=== PATIENT | female | born 1965 | race Caucasian/White ===

== ENCOUNTER 2017-01-14 14:21 | Inpatient (IN) | payer OTHER ==
[2017-01-14] VITALS (7 sets, daily range): BP systolic 117–132; BP diastolic 62–81; PULSE 67–88; RESP 16–18; O2SAT 97–100
[~2017-01-14] VITALS: Ht 172.7 cm; Wt 67.5 kg
--- NOTE | 2017-01-14 15:08 | ED.REPORT ---
HPI-GI Bleed Date of Service Jan 14, 2017 ED Provider: Jason Marshall MD Patient is a 51 year old female on Coumadin with a history of DVT who presents to the ED sent from [facility] complaining of hematochezia onset last night. She describes her bowel movements as "bright red" and explosive. Additional symptoms include "cramping" lower quadrant abdominal pain, generalized weakness, malaise, "scratchy" sensation, and diaphoresis. She denies melena, nausea, vomiting, or cough. She also denies any recent travel, taking antibiotics, new foods, encounters with infectious people, or previous similar symptoms. She has had three bowel movements today. Nursing Notes Stated Complaint: INTESTINAL BLEEDING ON COUMADIN/SENT [facility] Chief Complaint: Female Abdominal Pain Nursing Notes Reviewed: Yes Allergies: Coded Allergies: No Known Allergies (Unverified , 01/14/17) Scheduled Fluvoxamine Maleate ER (Fluvoxamine Maleate ER) 150 Mg Capsule 150 MG PO HS Lamotrigine (Lamotrigine) 150 Mg Tablet 75 MG PO BID Levothyroxine (Levothyroxine) 75 Mcg Tablet 75 MCG PO DAILY Warfarin Sodium (Warfarin Sodium) 5 Mg Tablet 2.5 MG PO Q THURSDAY Warfarin Sodium (Warfarin Sodium) 5 Mg Tablet 5 MG PO DAILY except SUN Scheduled PRN Propranolol HCl (Propranolol HCl) 10 Mg Tablet 10 MG PO TID PRN PRN tremors Valacyclovir HCl (Valtrex) 1,000 Mg Tablet 1,000 MG PO DAILY PRN PRN herpes b/ out General Time Seen by Provider: 15:07 Chief Complaint Chief Complaint: Stool bright red blood Bleeding Severity: Moderate Hx Obtained From: Patient Arrived By: Walk-in Onset Occurred: Yesterday Symptom Duration: Constant Quality: Painful Pertinent Negative: Relieved by nothing Recent Healthcare: No recent doctor visit, No recent hospitalization Similar Sx Previous: No Past Medical History Past Medical History Notes: Seen at [facility] 01/14/17 Past Medical History DVT Factor 5 leiden Only one iliac vein Smoking History Unknown if Ever Smoker Social History Other Social History: Good social support Ambulatory Status Independent Review of Systems "Scratchy" sensation Constitutional: Reports: Malaise GI: Reports: Abdominal pain (cramping in lower quadrants), Diarrhea, Hematochezia, Denies: Melena, Nausea, Vomiting Skin: Reports Diaphoresis Neurologic: Reports: Weakness Complete sys rev & neg: except as marked. Physical Exam Physical Exam Notes: No orthostatic changes of blood pressure or heart rate Initial Vital Signs Vital Signs (First) Date Time Temp Pulse Resp B/P Pulse Ox O2 Delivery O2 Flow Rate FiO2 01/14/17 14:31 36.6 74 18 132/81 100 01/14/17 16:11 Room Air Initial VS: Reviewed Neck: Supple, Non-tender Extremities: Vascular intact, Neuro intact, No swelling, No tenderness Skin: Warm, Dry, No cyanosis Neurologic: Alert, Oriented, Nonfocal Psychiatric: Mood/affect normal, Behavior normal, Normal thought content General/Constitutional: Awake, Alert Respiratory / Chest: Atraumatic, Breath sounds NL, Breath sounds = bilat, No respiratory distress Cardiovascular: Heart rate NL, Regular rhythm, Heart sounds NL, No gallop, No murmurs, No rubs Abdomen: Atraumatic, Soft, BS normoactive Tenderness/Guarding/Rebound: Positive: Tender LLQ... (Mild) Interpretation & Diagnostics Lab Results Interpretation Result Diagram: 01/14/17 1545 01/14/17 1545 Test 01/14/17 14:43 01/14/17 15:45 01/14/17 16:21 Hold Urine Received (Received) White Blood Count 9.2th/mm3 (3.8-10.1) Red Blood Count 4.86mil/mm3 (3.90-5.20) Hemoglobin 14.7g/dL (12.0-15.6) Hematocrit 44.9% (35.0-46.0) Mean Corpuscular Volume 92.4fL (81-100) Mean Corpuscular Hemoglobin 30.2pg (27.0-35.0) Mean Corpuscular Hemoglobin Concent 32.7% (32.0-37.0) Red Cell Distribution Width 13.4% (12.3-15.4) Platelet Count 243bil/L (150-400) Neutrophils (%) (Auto) 78.3% (40-74) Lymphocytes (%) (Auto) 14.1% (14-46) Monocytes (%) (Auto) 6.9% (4-12) Eosinophils (%) (Auto) 0.5% (0-5) Basophils (%) (Auto) 0.1% (0-3) Prothrombin Time 18.7sec (8.1-12.5) Prothromb Time International Ratio 1.73ratio Sodium Level 139mEq/L (134-144) Potassium Level 3.7mEq/L (3.5-5.2) Chloride Level 101mEq/L (97-108) Carbon Dioxide Level 23mmol/L (18-29) Blood Urea Nitrogen 12mg/dL (6-24) Creatinine 0.59mg/dL (0.57-1.00) Estimat Glomerular Filtration Rate 154mL/min (>59) Glucose Level 78mg/dL (60-99) Calcium Level 9.6mg/dL (8.5-10.1) Total Bilirubin 0.4mg/dL (0.0-1.2) Aspartate Amino Transf (AST/SGOT) 25U/L (0-50) Alanine Aminotransferase (ALT/SGPT) 19U/L (0-32) Alkaline Phosphatase 121U/L (25-150) Total Protein 7.4g/dL (6.4-8.4) Albumin 4.9g/dL (3.4-5.0) Urine Color Straw (YELLOW) Urine Appearance Clear (CLEAR,HAZY) Urine pH 7.0 (5.0-8.0) Urine Specific [place] 1.010 (1.003-1.035) Urine Protein Negativemg/dL (NEG,TRACE) Urine Glucose (UA) Negativemg/dL (NEGATIVE) Urine Ketones Negativemg/dL (NEGATIVE) Urine Occult Blood Trace (NEGATIVE) Urine Nitrite Negative (NEGATIVE) Urine Bilirubin Negative (NEGATIVE) Urine Urobilinogen Normalmg/dL (NORMAL) Urine Leukocyte Esterase Negative (NEGATIVE) Urine RBC 0-2/hpf (0-2) Urine WBC 0-5/hpf (0-5) Urine Epithelial Cells Few/hpf (NONE-MOD) Urine Crystals None seen (NONE SEEN) Urine Bacteria Few/hpf (NONE-FEW) Urine Hyaline Casts None/lpf (NONE) Urine Granular Casts None seen (NONE SEEN) Urine Waxy Casts None seen (NONE SEEN) Urine Red Blood Cell Casts None seen (NONE SEEN) Urine White Blood Cell Casts None seen (NONE SEEN) Urine Mucus None seen (None Seen) Urine Trichomonas None seen (NONE SEEN) Urine Yeast None (NONE SEEN) Urinalysis Comment None Urine Culture Reflexed Not indicated ECG Interpretation ECG Interpretation: Sinus rhythm, rate 68 Time: 15:35 Interpreted by: ED physician CT Abd / Pelvis Interpretation IMPRESSION: 1. Circumferential wall thickening involving the distal transverse and left colon compatible with nonspecific colitis. Differential diagnosis includes inflammatory and infectious etiologies as well as less likely neoplastic etiology. 2. 6.1 cm heterogeneously enhancing uterine mass possibly representing uterine fibroid. Recommend gynecology consultation. 3. Venous varices in the subcutaneous fat of the anterior lower pelvis. Recommend bilateral lower extremity Doppler ultrasound to exclude chronic venous thrombosis. 4. No dilated loops of bowel. 5. No free fluid or air. Dictated by: Bibi Crum MD, PhD on 01/14/2017 at 17:41 Approved by: Bibi Crum MD, PhD on 01/14/2017 at 17:47 Study type: Abdominal CT IV contrast Interpretation / Wet Read by: Interpret - Radiologist Re-Eval/Medical Decision Med Decision/Clinical Course 51-year-old female with diarrhea that has turned bloody. She is not having much in the way of stool or blood output at present, she is hemodynamically stable with a normal hematocrit. The patient is anticoagulated though her INR is subtherapeutic at present. I believe given her minimal bleeding he does not need urgent reversal of her anticoagulation though it would be my inclination to hold her warfarin at present. I discussed the case with GI; we have obtained stool studies, at the recommendation of GI we have not initiated empiric antibiotic treatment. She will be admitted to the hospitalist service with GI consultation. Source of Hx: Old records Re-Evaluation/Progress : Time of Eval: 16:57 Re-Evaluation/Progress Note: Pt rechecked. Performed physical exam. Discussed plan for admission. Pt understands and agrees with plan. All questions addressed. Consultation #1: Referral / Consult Name: Sher Blackwell MD Call Returned at: 18:00 Computing Consultant: Agrees with eval, Agrees with plan Note: Discussed pt's case with head of data, Dr. Blackwell. Does not want pt on antibiotics. Consultation #2: Referral / Consult Name: BERNARDO DAVID MD Consulted With: Hospitalist Call Returned at: 18:20 Computing Consultant: Will see patient, Agrees with plan, Accepts admit Note: Discussed pt's case with hospitalist, Dr. David. Counseled Regarding: Diagnosis, Lab results, Need for admission Discharge & Departure Impression: Primary Impression: GI bleed GI bleed type/associated pathology: unspecified gastrointestinal hemorrhage type Qualified Code: K92.2 - Gastrointestinal hemorrhage, unspecified Additional Impressions: Colitis Anticoagulated on Coumadin Disposition: ADMITTED TO HOSPITAL Discharge Condition All VS Reviewed: Yes Condition: Stable Scribe Attestation Portions of this note were transcribed by Mary Velázquez. I, Dr. Walters, personally performed the history, physical exam and medical decision-making; I reviewed and confirmed the accuracy of the information in the transcribed note. Jason Walters MD Jan 14, 2017 15:08 Mary Velázquez Jan 14, 2017 15:23
[2017-01-14 16:04] LABS: BASOPHILS % (AUTO) 0.1 % (0-3); EOSINOPHILS % (AUTO) 0.5 % (0-5); MONOCYTES % (AUTO) 6.9 % (4-12); Mean Corpuscular Hemoglobin 30.2 pg (27.0-35.0); Mean Corpuscular Volume 92.4 fL (81-100); NEUTROPHILS % (AUTO) 78.3 % (40-74); Platelet Count 243 bil/L (150-400)
[2017-01-14 16:18] LABS: INR 1.73 ratio
[2017-01-14 16:32] LABS: APPEARANCE,URINE CLEAR (CLEAR,HAZY); COLOR,URINE STRAW (YELLOW); OCCULT BLOOD,URINE TRACE (NEGATIVE); UROBILINOGEN,URINE NORMAL (NORMAL)
[2017-01-14] MEDS ORDERED: HYDROmorphone 0.5 mg/0.5 mL iSecure Syringe IVPUSH PRN (16:55)
[2017-01-14] MEDS ORDERED: 0.9% Sodium Chloride 1,000 ML IV ONE (16:55)
[2017-01-14] MEDS ORDERED: Ondansetron 2 mg/mL 2 mL Inj ONE (16:58)
--- NOTE | 2017-01-14 17:48 | DRSVH ---
PROCEDURE: CT ABDOMEN AND PELVIS WITH CONTRAST ([id number]) INDICATIONS: LLQ tender/bloody diarrhea TECHNIQUE: After the administration of intravenous contrast, 5 mm thick sections acquired from the diaphragm to the symphysis. 5 mm coronal and sagittal reformats were acquired. For radiation dose reduction, the following was used: automated exposure control, adjustment of mA and/or kV according to patient siz e. COMPARISON: None. FINDINGS: Image quality: Excellent. ABDOMEN: Lung bases: Lung bases are clear. Heart size is normal. Solid organs: Liver and spleen are normal in size and enhancement. Gallbladder is within normal cooper its. Biliary system is non dilated. Pancreas enhances normally. No adrenal nodules. Kidneys demon strate normal size and enhancement, without hydronephrosis. Peritoneum and bowel: Circumferential wall thickening involving the distal transverse colon, the col onic splenic flexure in the left colon compatible with nonspecific colitis noted. No free fluid or a ir. The appendix is not definitely visualized, however, no inflammatory changes are noted adjacent to the cecum. 1.1 cm calcification noted adjacent to the cecum may represent appendicolith. Nodes and vessels: No retroperitoneal or mesenteric adenopathy by size criteria. Aorta and inferior vena cava are normal in size. Miscellaneous: No ventral hernias. PELVIS: Genitourinary: Bladder wall thickness is normal. There is a large, approximately 6.1 cm in diameter heterogeneously enhancing uterine mass which may represent a large uterine fibroid, however other nat plastic processes cannot be excluded. Miscellaneous: No inguinal hernias or adenopathy. Venous varices noted in the subcutaneous fat of th e anterior lower pelvis. Bones: No suspicious bony lesions. No vertebral body compression fractures. IMPRESSION: 1. Circumferential wall thickening involving the distal transverse and left colon compatible with no nspecific colitis. Differential diagnosis includes inflammatory and infectious etiologies as well as less likely neoplastic etiology. 2. 6.1 cm heterogeneously enhancing uterine mass possibly representing uterine fibroid. Recommend g ynecology consultation. 3. Venous varices in the subcutaneous fat of the anterior lower pelvis. Recommend bilateral lower e xtremity Doppler ultrasound to exclude chronic venous thrombosis. 4. No dilated loops of bowel. 5. No free fluid or air. Dictated by: Bibi Crum MD, PhD on 01/14/2017 at 17:41 Approved by: Bibi Crum MD, PhD on 01/14/2017 at 17:47
[2017-01-14] MEDS ORDERED: VALA1000 PO (18:50)
[2017-01-14] MEDS ORDERED: LAMO150T2 PO (18:50)
[2017-01-14] MEDS ORDERED: WARF5TAB7 PO ×2 (18:50)
[2017-01-14] MEDS ORDERED: FLUV150C2 PO (18:50)
[2017-01-14] MEDS ORDERED: PROP10TA8 PO (18:50)
[2017-01-14] MEDS ORDERED: Ondansetron 2 mg/mL 2 mL Inj IVPUSH PRN ×2 (18:50→21:55)
[2017-01-14] MEDS ORDERED: LEVO75TA4 PO (18:50)
[2017-01-14] MEDS: 0.9% Sodium Chloride 1,000 ML IV SCH (19:42)
--- NOTE | 2017-01-14 21:22 | PCM.HPMED ---
Subjective Date of Service Jan 14, 2017 Primary Provider: Admitting Physician: Gary French MD Primary Care Physician: Nopbrody Attending Physician: Gary French MD Admit Status: From the Emergency Department Chief Complaint: Bloody diarrhea History of Present Illness: Ms. Anthony is a 51-year-old female with a past medical history significant for factor V Leiden with multiple DVTs on warfarin was sent from [facility] for ongoing episodes of bloody diarrhea which started last night. She reports extreme lower abdominal cramping with resultant bright red explosive diarrhea that continues to occur. The cramping pain does not radiate, and only is slightly better after defecation. She also reports weakness and diaphoresis, but denies any nausea, vomiting, chest pain, recent travel, antibiotic use, dietary changes. She also reports a one to 2 months history of bilateral lower leg cramping which makes it difficult to ambulate for prolonged period time. She says she gets a racing heart sensation but no dizziness, lightheadedness or overt leg pain. Review of Systems: Comprehensive review of systems was obtained and negative except as in the above history of present illness Allergies Coded Allergies: No Known Allergies (Unverified , 01/14/17) Home Medications Scheduled Fluvoxamine Maleate ER (Fluvoxamine Maleate ER) 150 Mg Capsule 150 MG PO HS Lamotrigine (Lamotrigine) 150 Mg Tablet 75 MG PO BID Levothyroxine (Levothyroxine) 75 Mcg Tablet 75 MCG PO DAILY Warfarin Sodium (Warfarin Sodium) 5 Mg Tablet 2.5 MG PO Q THURSDAY Warfarin Sodium (Warfarin Sodium) 5 Mg Tablet 5 MG PO DAILY except SUN Scheduled PRN Propranolol HCl (Propranolol HCl) 10 Mg Tablet 10 MG PO TID PRN PRN tremors Valacyclovir HCl (Valtrex) 1,000 Mg Tablet 1,000 MG PO DAILY PRN PRN herpes b/ out PMH Factor V Leiden Multiple DVT Patient reports only one iliac vein present Surgical History Denies Family History Father had recurrent kidney stones and kidney disease. No history of GI issues. Social History Hx Alcohol Use: Yes (daily bottle of wine) Hx Substance Use: No Hx Tobacco Use: Yes Smoking Status: Former Smoker (3 years as a teenager), Unknown if Ever Smoker Living Arrangement: with Family Exam Vital Signs Vital Sign - Last Date Time Temp Pulse Resp B/P Pulse Ox O2 Delivery O2 Flow Rate FiO2 8/23/17 19:46 36.8 67 18 125/79 100 Room Air Exam Gen.: Age-appropriate female in no acute distress HEENT: NCAT, PERRLA, EOMI. Membranes pink and moist. No exudate or cobblestoning. Neck: Supple, no JVD or thyromegaly CV: Regular rate and rhythm, no murmurs, rubs, gallops Pulmonary: Clear to auscultation bilaterally no wheezes, rales, rhonchi Abd: Soft, nondistended. Tenderness in the lower quadrants L>R. No guarding or rebound. Bowel sounds present. Extremities: No clubbing, cyanosis, or edema. Weak distal pulses bilaterally. Neuro: Alert and oriented 3, CN II through XII intact. Muscle strength 5 out of 5 globally without focal deficit. Psych: Normal mood and affect Lab and Diagnostics Result Diagram: 01/14/17 1545 01/14/17 1545 Microbiology Stool PCR panel, bach negative X-Rays, CTs and MRIs Abd CT 01/14/17 IMPRESSION: 1. Circumferential wall thickening involving the distal transverse and left colon compatible with nonspecific colitis. Differential diagnosis includes inflammatory and infectious etiologies as well as less likely neoplastic etiology. 2. 6.1 cm heterogeneously enhancing uterine mass possibly representing uterine fibroid. Recommend gynecology consultation. 3. Venous varices in the subcutaneous fat of the anterior lower pelvis. Recommend bilateral lower extremity Doppler ultrasound to exclude chronic venous thrombosis. 4. No dilated loops of bowel. 5. No free fluid or air. Dictated by: Bibi Crum MD, PhD on 01/14/2017 at 17:41 Approved by: Bibi Crum MD, PhD on 01/14/2017 at 17:47 12-lead ECG NSR, rate 68 Assessment & Plan Ms. Anthony is a 51-year-old female with a past medical history significant for factor V Leiden with multiple DVTs on warfarin was sent from [facility] for ongoing episodes of bloody diarrhea which started last night and are ongoing. Lower GI bleed, present on admission. Acute. Ongoing. - Unlikely infectious as PCR panel is negative, no infectious symptoms, normal white blood cell count - No history of prior GI bleeds, hemorrhoids, diverticulosis - CT significant for distal transverse and left colon wall thickening compatible with colitis - Dr. Blackwell of Gastroenterology consulted from the ED, recommends: NPO at midnight, bowel prep only No antibiotics at this time - Typed and crossed in ED - Monitor H/H Factor V Leiden with prior DVT on warfarin, present on admission. Chronic. - Patient usually on heparin 5 mg daily with 2.5 mg on Thursday - INR 1.73 - Holding warfarin for now due to GI bleed - CT revealed venous varices and anterior lower pelvis; recommend bilateral lower extremity ultrasound - Ultrasound ordered - Patient will need to be re-anticoagulated prior to discharge History of tremors, present on admission. Chronic. - Patient reports workup was done but negative - Continue propranolol 10 mg 3 times daily as needed Depression, present on admission. Chronic. - Continue fluvoxamine 150 mg at night - Continue lamotrigine 75 mg twice daily Hypothyroidism, present on admission. Chronic. - Continue levothyroxine 75 mcg daily Alcohol use disorder, present on admission. Chronic. - Pt denies any withdrawal symptoms ever but has at least 1 bottle of wine daily - Monitor for withdrawal symptoms Acetaminophen as needed for mild pain, fever, headache. Bowel regimen as needed. Zofran for nausea. Subcutaneous heparin held for GI bleed. SCDs on and in place. Patient status: Patient was admitted to the inpatient service with length of stay likely >2 nights due to severity of presenting symptoms, complex medical workup, and ongoing treatment plan. VTE Prophylaxis Indicated: Contraindicated (GI bleed) VTE Mechanical Devices: Intermittant Pneumatic CD Resuscitation Status: CPR: Attempt Resuscitation Attending Statement The patient was seen and examined together with Dr. Tucker on 01/14 and I agree with the history, exam and plan as outlined in the note above. Raffaele Tucker DO Jan 14, 2017 21:22 Gary French MD Jan 15, 2017 00:54
[2017-01-14] MEDS ORDERED: PEG/Electrolytes 4,000 mL Solution PO ONE (21:50)
[2017-01-14] MEDS ORDERED: Alum-Mag Hydrox-Simeth 30 mL Suspension PO PRN (21:55)
[2017-01-14] MEDS ORDERED: Polyethylene Glycol (PEG) 17 Gm Powder PO PRN (21:55)
[2017-01-14] MEDS ORDERED: FLUVOXAMINE MALEATE 150 MG PO SCH ×2 (21:57→22:20)
[2017-01-14] MEDS ORDERED: lamoTRIgine 25 mg Tablet PO SCH (22:00)
[2017-01-14] MEDS: lamoTRIgine 25 mg Tablet PO SCH (23:09)
[2017-01-14] MEDS: FLUVOXAMINE MALEATE 150 MG PO SCH (23:11)
[2017-01-15] VITALS (9 sets, daily range): BP systolic 111–122; BP diastolic 58–79; PULSE 61–83; RESP 16–18; O2SAT 95–99
[2017-01-15] MEDS: HYDROmorphone 0.5 mg/0.5 mL iSecure Syringe IVPUSH PRN ×3 (01:55→11:33)
[2017-01-15] MEDS: 0.9% Sodium Chloride 1,000 ML IV SCH ×4 (03:47→17:27)
--- NOTE | 2017-01-15 03:49 | NUR ---
Admission Pt arrived to [facility] rm 1012 at 1930 from the ED. Pt is a/o x4, making needs known. Able to transfer from [facility] to bed with SBA. States her pain is much improved, 2/10 after receiving dilaudid. Pt is full code, diet to be NPO after midnight with bowel prep started. IV patent and IV fluids started. Oriented to room, call light and bathroom. Pt using bedside commode during bowel prep. Pt is scheduled for colonoscopy due to lower GI bleed. Care continues
[2017-01-15 06:02] LABS: BASOPHILS % (AUTO) 0.2 % (0-3); EOSINOPHILS % (AUTO) 0.8 % (0-5); MONOCYTES % (AUTO) 7.3 % (4-12); Mean Corpuscular Hemoglobin 31.2 pg (27.0-35.0); Mean Corpuscular Volume 94.5 fL (81-100); NEUTROPHILS % (AUTO) 79.2 % (40-74); Platelet Count 200 bil/L (150-400)
--- NOTE | 2017-01-15 08:30 | NUR ---
Go lyte prep Pt finished go lyte prep @ 0700. Bms are clear with slight pink tinge. Colonoscopy scheduled for tomorrow at this time however call was made to Dr. Blackwell who did not realize she had finished her prep already. Colonoscopy rescheduled for today at ~1600. Care conts
--- NOTE | 2017-01-15 08:35 | PCM.PNMED ---
Subjective Date of Service Jan 15, 2017 Subjective Patient seen and examined. Says the bleeding has slowed down. Mentions that she has had DVTs in the past and is worried that it may be progressing. Says pain is better now. Vitals stable. Exam Vital Signs Vital Sign - Last Date Time Temp Pulse Resp B/P Pulse Ox O2 Delivery O2 Flow Rate FiO2 01/15/17 06:32 68 01/15/17 05:00 36.8 117/75 98 Room Air 01/15/17 00:06 18 Intake and Output 01/14/17 01/14/17 01/15/17 Cumulative From/Thru 15:00 23:00 07:00 01/14/17 14:31 - 01/15/17 06:48 Intake Total 5123 ml 5123 ml Balance 5123 ml 5123 ml Intake Oral 4120 ml 4120 ml IV Total 1003 ml 1003 ml # Voids 1 10 11 # Bowel Movements 10 10 Exam Gen.: Age-appropriate female in no acute distress CV: Regular rate and rhythm, no murmurs, rubs, gallops Pulmonary: Clear to auscultation bilaterally no wheezes, rales, rhonchi Abd: Soft, nondistended. Tenderness in the lower quadrants L>R. No guarding or rebound. Bowel sounds present. Extremities: No clubbing, cyanosis, or edema. Weak distal pulses bilaterally. Neuro: Alert and oriented 3, CN II through XII intact. Muscle strength 5 out of 5 globally without focal deficit. Psych: Normal mood and affect Lab and Diagnostics Result Diagram: 01/15/17 0512 01/15/17 0512 Microbiology Stool PCR panel, bach negative X-Rays, CTs and MRIs Abd CT 01/14/17 IMPRESSION: 1. Circumferential wall thickening involving the distal transverse and left colon compatible with nonspecific colitis. Differential diagnosis includes inflammatory and infectious etiologies as well as less likely neoplastic etiology. 2. 6.1 cm heterogeneously enhancing uterine mass possibly representing uterine fibroid. Recommend gynecology consultation. 3. Venous varices in the subcutaneous fat of the anterior lower pelvis. Recommend bilateral lower extremity Doppler ultrasound to exclude chronic venous thrombosis. 4. No dilated loops of bowel. 5. No free fluid or air. Dictated by: Bibi Crum MD, PhD on 01/14/2017 at 17:41 Approved by: Bibi Crum MD, PhD on 01/14/2017 at 17:47 12-lead ECG NSR, rate 68 Assessment & Plan Ms. Anthony is a 51-year-old female with a past medical history significant for factor V Leiden with multiple DVTs on warfarin was sent from [facility] for ongoing episodes of bloody diarrhea which started last night and are ongoing. Lower GI bleed, present on admission. Acute. Ongoing. - Hgb stable, will keep monitoring - CT significant for distal transverse and left colon wall thickening compatible with colitis - Dr. Blackwell of Gastroenterology consulted from the ED, recommends: NPO at midnight, bowel prep only No antibiotics at this time Factor V Leiden with prior DVT on warfarin, present on admission. Chronic. - Patient usually on heparin 5 mg daily with 2.5 mg on Thursday - INR 1.73 on admissoion - Holding warfarin for now due to GI bleed - CT revealed venous varices and anterior lower pelvis; recommend bilateral lower extremity ultrasound - Ultrasound ordered - patient moved to the area, does not have cryogenics engineer, will get Hem consult Uterine Fibroid - as noted in CT - patient has seen technician telecommunication systems in the past, work up done, was told that it is not growing and is stable - follow up outpatient History of tremors, present on admission. Chronic. - Patient reports workup was done but negative - Continue propranolol 10 mg 3 times daily as needed Depression, present on admission. Chronic. - Continue fluvoxamine 150 mg at night - Continue lamotrigine 75 mg twice daily Hypothyroidism, present on admission. Chronic. - Continue levothyroxine 75 mcg daily Alcohol use disorder, present on admission. Chronic. - Pt denies any withdrawal symptoms ever but has at least 1 bottle of wine daily - Monitor for withdrawal symptoms Acetaminophen as needed for mild pain, fever, headache. Bowel regimen as needed. Zofran for nausea. Subcutaneous heparin held for GI bleed. SCDs on and in place. Patient status: Patient was admitted to the inpatient service with length of stay likely >2 nights due to severity of presenting symptoms, complex medical workup, and ongoing treatment plan. VTE Mechanical Devices: Intermittant Pneumatic CD Resuscitation Status: CPR: Attempt Resuscitation Time spent 35 mins Karlo Newton MD Jan 15, 2017 08:35
[2017-01-15] MEDS: lamoTRIgine 25 mg Tablet PO SCH ×2 (09:51→21:43)
--- NOTE | 2017-01-15 11:27 | DRSVH ---
PROCEDURE: US VENOUS LEG DUPLEX BILATERAL INDICATIONS: factor 5 leiden, previous DVT TECHNIQUE: Real-time imaging, as well as color and pulse Doppler interrogation, were performed of the deep veins of both legs from the inguinal ligament to the popliteal fossa. COMPARISON: None. FINDINGS: The deep veins are normally compressible, and free of intraluminal thrombus. Color and pu lse Doppler demonstrate normal phasic intravascular flow. There is normal augmentation response to d istal compression maneuver. IMPRESSION: No deep venous thrombosis identified within the left lower extremity. Dictated by: Cas Zarate [facility] Interpreted: Bibi Crum MD on 01/15/2017 at 9:45 Approved by: Bibi Crum MD, PhD on 01/15/2017 at 11:25
--- NOTE | 2017-01-15 11:50 | PCM.CHPMED ---
Subjective Date of Service: Jan 15, 2017 Provider requesting consult: Jason Walters MD Primary Physician: Admitting Physician: Gary French MD Primary Care Physician: Akil Attending Physician: Karlo Newton MD Admit Status: From the Emergency Department Chief Complaint: Chief Complaint: Bloody diarrhea History of Present Illness: GASTROENTEROLOGY CONSULT: Attending Physician: Resident Physician: Vesna Kunz DO Ms. Anthony is a 51-year-old with a history of hypothyroidism and factor V Leiden with multiple DVTs, chronically anticoagulated on warfarin who was transferred to [facility] from [facility] for hematochezia that started two days ago. Patient reports a history of chronic abdominal pain and cramping that is intermittent. She states that episodes occur a couple of times per year and typically last for several days and then resolve without treatment. She notes that this has been an issue for nearly twenty years. However, she states that she has never had blood in her stool before. She reports having an EGD done in the that showed gastritis and her last colonoscopy approximately 5 years ago she thinks was normal. She describes the abdominal pain as cramping, it does not radiate and it is mildly relieved with defecation. Associated symptoms include diaphoresis, generalized weakness, and a rapid heart rate. She denies nausea, vomiting, dietary or medication changes, recent travel or antibiotics. She states that she does not take NSAIDs, is a nonsmoker and drinks only 1 cup of coffee per day. When asked about alcohol intake she states that she probably drinks too much. She states that she shares 2 bottles of wine with her 3 -4 times per week. In the ED she was afebrile and normotensive with a BP of 132/81 and a heart rate in the 70s. She was maintaining oxygen saturations of 99-100% on room air. Labs including a CBC, CMP and UA were unremarkable. A CT abdomen was significant for circumferential wall thickening involving the distal transverse and left colon compatible with nonspecific colitis. Stool PCR is negative. Review of Systems: A comprehensive review of systems was conducted with the patient and found to be negative except as above in the History of Present Illness. PMH Past Medical History Factor V Leiden Multiple DVT Patient reports only one iliac vein present Hypothyroidism . Surgical History Denies . Home Medications Fluvoxamine Maleate ER 150 MG PO HS Lamotrigine 75 MG PO BID Levothyroxine 75 MCG PO DAILY Warfarin Sodium 2.5 MG PO Q THURSDAY Warfarin Sodium 5 MG PO DAILY except SUN Scheduled PRN Propranolol HCl 10 MG PO TID PRN tremors Valacyclovir HCl 1,000 MG PO DAILY PRN herpes b/out Allergies: Coded Allergies: No Known Allergies (Unverified , 01/14/17) Family History Family History Father had recurrent kidney stones and kidney disease. No history of GI issues. Social History Hx Alcohol Use: Yes (daily bottle of wine)Hx Substance Use: NoHx Tobacco Use: Yes Smoking Status: Former Smoker (3 years as a teenager) Unknown if Ever Smoker Living Arrangement: with Family Exam Vital Signs Vital Sign - Last Date Time Temp Pulse Resp B/P Pulse Ox O2 Delivery O2 Flow Rate FiO2 01/15/17 06:32 68 01/15/17 05:00 36.8 117/75 98 Room Air 01/15/17 00:06 18 Intake and Output 01/14/17 01/14/17 01/15/17 Cumulative From/Thru 15:00 23:00 07:00 01/14/17 14:31 - 01/15/17 06:48 Intake Total 5123 ml 5123 ml Balance 5123 ml 5123 ml Intake Oral 4120 ml 4120 ml IV Total 1003 ml 1003 ml # Voids 1 10 11 # Bowel Movements 10 10 General: Well appearing, middle-aged female in no acute distress. HEENT: Normocephalic, atraumatic. PERRLA, EOMI. Anicteric sclerae. Mucous membranes moist/pink Neck: Neck supple with full range of motion. No JVD, lymphadenopathy or thyromegaly. Lungs: Clear to auscultation bilaterally with no crackles, wheezes, or rhonchi. Cardiovascular: Regular rate/rhythm. No murmurs/rubs/gallops Abdomen: Soft, non-distended, mildly tender to palpation diffusely (more so in LLQ), no masses. Hypoactive bowel tones Extremities: No edema. Distal pulses diminished bilaterally. Skin: Warm, dry without obvious rashes or ulcerations. Neurological: AOx3, no focal neurologic deficit. Normal speech. Lab and Diagnostics Result Diagram: 01/15/1751101/15/17 0512 X-Rays, CTs and MRIs 01/14/17 - CT ABDOMEN AND PELVIS WITH CONTRAST IMPRESSION: 1. Circumferential wall thickening involving the distal transverse and left colon compatible with nonspecific colitis. Differential diagnosis includes inflammatory and infectious etiologies as well as less likely neoplastic etiology. 2. 6.1 cm heterogeneously enhancing uterine mass possibly representing uterine fibroid. Recommend gynecology consultation. 3. Venous varices in the subcutaneous fat of the anterior lower pelvis. Recommend bilateral lower extremity Doppler ultrasound to exclude chronic venous thrombosis. 4. No dilated loops of bowel. 5. No free fluid or air. Approved by: Bibi Crum MD, PhD on 01/14/2017 at 17:47 Assessment & Plan Assessment Ms. Anthony is a 51-year-old with a history of hypothyroidism and factor V Leiden with multiple DVTs, chronically anticoagulated on warfarin who presented to the ED with a one day history of bloody diarrhea. GI consulted for further evaluation of abdominal pain and hematochezia. Acute lower GI bleed with CT findings consistent with colitis. -Differential includes: segmental colitis associated with diverticulosis, diverticulitis, IBD, neoplasms, and infectious colitis. Unlikely infectious as PCR panel is negative, no infectious symptoms, normal white blood cell count. -Patient presented with bright red blood per rectum for the the past 24-48hrs. Hemodynamically stable at presentation with Hb of 14.7. -CT abdomen significant for wall thickening of distal transverse and left colon compatible with colitis. -No history of prior GI bleeds, hemorrhoids, diverticulosis -Completed bowel prep overnight RECOMMENDATIONS: -Colonoscopy planned for today -Monitor H/H Additional problems managed by primary medicine team: -Factor V Leiden with prior DVT on warfarin -Calf pain with venous varices noted on CT. -History of essential tremor -Depression -Hypothyroidism -Alcohol use disorder . Problems: Pain Evaluation: Adequate Pain Control VTE Prophylaxis Indicated: Contraindicated (GI bleed) VTE Mechanical Devices: Intermittant Pneumatic CD Resuscitation Status: CPR: Attempt Resuscitation Vesna Kunz DO Jan 15, 2017 07:55
[2017-01-15] MEDS ORDERED: fentaNYL-PF 50 mCg/mL 2 mL Inj ONE (12:44)
[2017-01-15] MEDS ORDERED: Propofol 10,000 mCg/mL 20 mL Inj ONE (12:44)
[2017-01-15] MEDS ORDERED: EPHEDrine/NS 5 mg/mL 5 mL Syringe ONE (12:44)
--- NOTE | 2017-01-15 15:22 | PCM.HPANE ---
Patient Data Surgeon Admitting Provider:Gary French MD Attending Provider:Karlo Newton MD Primary Care Physician:Akil Other Provider: Reason for Visit Lower Gi Bleed, Anticoagulated LOWER GI BLEED, ANTICOAGULATED Ht/WT & BMI Height (Feet): 5 Height (Inches): 8.00 Weight (Kilograms): 67.500 Body Mass Index 22.55 Allergies Coded Allergies: No Known Allergies (Unverified , 01/14/17) Past Anesthesia History Anesthesia History: Denies:: Abnormal Airway Diabetes History Hx Diabetes?: No MRSA MRSA: No Medications Reported Medications Lamotrigine 150 Mg [id number] Mg PO BID 01/14/17 Fluvoxamine Maleate ER 150 Mg [id number] Mg PO HS 01/14/17 Propranolol HCl 10 Mg [id number] Mg PO TID PRN tremors 01/14/17 Valacyclovir HCl (Valtrex)1,000 Mg Tablet1,000 Mg PO DAILY PRN herpes b/out 01/14/17 Warfarin Sodium 5 Mg Tablet5 Mg PO DAILY except SUN 01/14/17 Warfarin Sodium 5 Mg Tablet2.5 Mg PO Q Thursday01/14/17 Levothyroxine 75 Mcg [id number] Mcg PO DAILY 01/14/17 History History of ENT Problems?: No HEENT History: Denies:: Abnormal Airway Denture Type: None Teeth Condition: Within Normal Limits Hx of Heart Problems?: Yes Cardiovascular History: Denies:: Abdominal Aortic Aneurism Hx of Respiratory Problem?: No Respiratory History: Denies:: Emphysema Hx Neurologic Problems?: Yes Other Neurological Pertinent: essensial tremors Hx of GI Problems?: Yes Hx of Problems?: No Female Hx: Denies:: Currently Endometriosis Pelvic Inflammatory Problems with Breasts? Hx Musculoskeletal Problems?: No Hx of Psycho/Social Problems?: Yes Psycho Social History: Positive for:: Hx Depression Hx Surgeries?: No Hx Any Other Health Problems?: Yes Other History: Positive for:: Thyroid Disease History Blood Transfusions: Positive for:: Accept Blood Products? Denies:: Blood Transfusions Hx Diabetes: No Hx Alcohol Use: Yes (daily bottle of wine)Hx Substance Use: No Smoking Status: Former Smoker (3 years as a teenager) Unknown if Ever Smoker Stop/Bang Treated for Sleep Apnea?: No Do You Have a CPAP Machine?: No S-Snoring: Do You Snore Loudly: No T-Tired: feel tired, fatigued: No O-Obsered: Observed not breath: No P-Blood Pressure: treated: No B- Body Mass Index > 35 kg/m2: No A- Age over 50: Yes N- Neck Large Circumference: No G- Gender Male: No AMADOR Total Score: 0 AMADOR Risk Assessment: Low Risk, <3 Yes Risk Assessment Category Category 1A: Patient has history of documented sleep apnea, and HAS NOT received any narcotic, sedative or anesthesia administration during this stay. Category 1B: Patient has history of documented sleep apnea, and HAS received any narcotic , sedative or anesthesia administration during this stay Category 2: Patient has SUSPECTED Obstructive Sleep Apnea, and HAS received any narcotic , sedative or anesthesia administration during this stay. Category 3: Patient has SUSPECTED Obstructive Sleep Apnea and HAS NOT received narcotic, sedative or anesthesia administration during this stay. Category 4: Outpatient in Procedural Areas with known sleep apnea or who screen positive for High Risk via the STOP/BANG questionnaire. Exam Exam Vital Signs Vital Signs Date Time Temp Pulse Resp B/P Pulse Ox O2 Delivery O2 Flow Rate FiO2 01/15/17 15:00 36.6 63 16 111/70 99 Room Air 01/15/17 09:56 36.6 63 16 112/69 97 Room Air 01/15/17 08:40 66 General Appearance: Alert, Oriented X3, Cooperative, No Acute Distress HEENT/AIRWAY: MP 2 Lungs: Clear to Auscultation, Normal Air Movement Heart: Exam Unremarkable, Regular Rate/Rhythm, No Murmurs/Rubs/Gallops Meds/Labs/Diagnostics Admission Meds Current Medications Sodium Chloride (Normal Saline) 1,000 ml @ 0 mls/hr Q0M ONCE IV Last administered on 01/14/17 17:04; Start 01/14/17 at 16:55; Stop 01/14/17 at 16:56 ; Status DC Ondansetron HCl 4 mg 4 mg STK-MED ONCE .ROUTE Last administered on 01/14/17 17 :04; Start 01/14/17 at 16:58; Stop 01/14/17 at 16:59; Status DC Sodium Chloride (Normal Saline) 1,000 ml @ 100 mls/hr Q10H IV Last administered on 01/15/17 05:21; Start 01/14/17 at 18:48 Levothyroxine Sodium (Synthroid) 75 mcg DAILYAC PO Last administered on 09:51; Start 01/15/17 at 07:30 Polyethylene Glycol/ Electrolytes (Colyte) 4,000 ml ONCE ONCE PO Last administered on 01/14/17 23:10; Start 01/14/17 at 21:50; Stop 01/14/17 at 22:02 ; Status DC Lamotrigine (LaMICtal) 75 mg BID PO Last administered on 01/15/17 09:51; Start 01/14/17 at 22:20 Patient Own Medication (Patient's Own -> Oral Medication) 1 ea HS PO Last administered on 01/14/17 23:11; Start 01/14/17 at 21:00 Labs Test 01/14/17 14:43 01/14/17 15:45 01/14/17 16:21 01/15/17 05:12 Hold Urine Received (Received) Prothrombin Time 18.7sec (8.1-12.5) Prothromb Time International Ratio 1.73ratio Urine Color Straw (YELLOW) Urine Appearance Clear (CLEAR,HAZY) Urine pH 7.0 (5.0-8.0) Urine Specific Twisp 1.010 (1.003-1.035) Urine Protein Negativemg/dL (NEG,TRACE) Urine Glucose (UA) Negativemg/dL (NEGATIVE) Urine Ketones Negativemg/dL (NEGATIVE) Urine Occult Blood Trace (NEGATIVE) Urine Nitrite Negative (NEGATIVE) Urine Bilirubin Negative (NEGATIVE) Urine Urobilinogen Normalmg/dL (NORMAL) Urine Leukocyte Esterase Negative (NEGATIVE) Urine RBC 0-2/hpf (0-2) Urine WBC 0-5/hpf (0-5) Urine Epithelial Cells Few/hpf (NONE-MOD) Urine Crystals None seen (NONE SEEN) Urine Bacteria Few/hpf (NONE-FEW) Urine Hyaline Casts None/lpf (NONE) Urine Granular Casts None seen (NONE SEEN) Urine Waxy Casts None seen (NONE SEEN) Urine Red Blood Cell Casts None seen (NONE SEEN) Urine White Blood Cell Casts None seen (NONE SEEN) Urine Mucus None seen (None Seen) Urine Trichomonas None seen (NONE SEEN) Urine Yeast None (NONE SEEN) Urinalysis Comment None Urine Culture Reflexed Not indicated White Blood Count 10.6th/mm3 (3.8-10.1) Red Blood Count 4.75mil/mm3 (3.90-5.20) Hemoglobin 14.8g/dL (12.0-15.6) Hematocrit 44.9% (35.0-46.0) Mean Corpuscular Volume 94.5fL (81-100) Mean Corpuscular Hemoglobin 31.2pg (27.0-35.0) Mean Corpuscular Hemoglobin Concent 33.0% (32.0-37.0) Red Cell Distribution Width 13.7% (12.3-15.4) Platelet Count 200bil/L (150-400) Neutrophils (%) (Auto) 79.2% (40-74) Lymphocytes (%) (Auto) 12.3% (14-46) Monocytes (%) (Auto) 7.3% (4-12) Eosinophils (%) (Auto) 0.8% (0-5) Basophils (%) (Auto) 0.2% (0-3) Sodium Level 143mEq/L (134-144) Potassium Level 4.2mEq/L (3.5-5.2) Chloride Level 107mEq/L (97-108) Carbon Dioxide Level 18mmol/L (18-29) Blood Urea Nitrogen 6mg/dL (6-24) Creatinine 0.59mg/dL (0.57-1.00) Estimat Glomerular Filtration Rate 154mL/min (>59) Glucose Level 113mg/dL (60-99) Calcium Level 8.8mg/dL (8.5-10.1) Total Bilirubin 0.4mg/dL (0.0-1.2) Aspartate Amino Transf (AST/SGOT) 23U/L (0-50) Alanine Aminotransferase (ALT/SGPT) 15U/L (0-32) Alkaline Phosphatase 95U/L (25-150) Total Protein 6.5g/dL (6.4-8.4) Albumin 4.6g/dL (3.4-5.0) Plan Impression Patient chart reviewed, patient interviewed and anesthestic plan with risks, benefits, and alternatives discussed, and informed consent obtained. NPO per Anesth. Guidelines: Yes ASA Physical Status: ASA2 Mod Systemic Disease Anesthetic Plan: MAC Bene/Risks/Altern/Consents: Yes HP Complete Prior to Induction: Yes Sam Dillard MD Jan 15, 2017 15:22
--- NOTE | 2017-01-15 15:52 | NUR ---
Social Work: Initial Assessment/Multidisciplinary Rounds D: EMR reviewed. Please see Initial Assessment linked to this note for more information. Pt is a 51 year old female admitted [place] with no readmit risk score for lower GI bleed, anticoagulated per H&P. Pt's insurance is ev-social. PCP is [facility] on [facility] (pt's PCP retired). Pt discussed in multidisciplinary rounds, GI consulted. Pt will likely require PCP and/or GI follow up. MD requested CD consult, no CD orders received at time of rounds. SW met with pt and at bedside to conduct initial assessment. Pt was alert and oriented x3. SW explained role and wrote phone number on white board. Pt lives at home with her spouse on [facility]. Pt is independent with all ADLs. Pt uses no DME. Pt ambulates independently. Pt drives. Pt's is DPOA, paperwork requested. Pt's to provide transportation home at d/c. Plan written on whiteboard. A: Pt who is independent at baseline and has the capacity for self-care. P: Pt anticipated to discharge home with to transport via POV. SW will continue to follow for needs until time of discharge. MALIA Brothers Addendum: 01/15/17 at 1559 by STIVEN MENESES Amended: Links added.
[2017-01-15] MEDS ORDERED: PEG/Electrolytes 4,000 mL Solution PO ONE (16:00)
--- NOTE | 2017-01-15 16:00 | NUR ---
Social Work- Chemical Dependency Assessment Circumstances/Reason for Referral: Pt is a 51 year old female admitted for lower GI bleed. Per chart review, pt reports drinking one bottle of wine each night. UTOX was not obtained upon admission. SW acknowledges Substance Abuse order and completed assessment at bedside with pt's present. History of Substance Use: Pt reports drinking her entire adult life. Pt and her both drink daily. Pt states that it is social and cultural. Pt's family culture very much involves cooking with and drinking wine daily. Pt denies uses any other substances. Pt repeatedly discussed feeling "disappointed" in herself after she has been drinking. Pt feels that she cannot stop herself from drinking once that part of her day arrives. Pt describes it being very difficult for her to adjust her routine and habits to avoid alcohol. Pt could not articulate any negative consequences related to her drinking but simultaneously became tearful during this discussion. Pt states that she knows she should stop drinking and described feeling embarrassed and disappointed in herself when she was prescribed anticoagulants and did not stop drinking. Throughout conversation pt presented a picture of feeling powerless around alcohol and was simultaneously resistant to reducing her drinking. Pt's is supportive but also presented himself as a bit of an enabler. History of Treatment Programs: Pt has never participated in any treatment programs History of Withdrawal: Pt does not endorse any withdrawal symptoms. Family History: Family history was not discussed at great length but pt did explain a lifestyle of drinking and socializing. History of Sobriety and Supports: Pt does not endorse any long periods of time without alcohol. When her could not drink due to abx use for two weeks pt reports cutting down drastically but did not stop completely. Pt identified that her would be her primary support. Pt confirms that her would have to stop drinking and they would have to remove all alcohol from their home for her to be successful at this time. Perception of Use: Pt is considering making a change but is not willing to take the steps at this time. Pt denied any knowledge of resources or support on [facility] but was open to considering resources. Pt was agreeable to [facility] placed at bedside. KELLI also researched [facility] locations and printed out information for [facility] Chemical Dependency Resources. Resources placed at bedside. Recommendations for Referral and Follow Up: SW recommends patient reduce her drinking after this hospitalization and explore potential outpt supports on [facility]. Recommended that pt's also reduce his drinking at the same time so as to offer support. [facility] Location contact information left at patient's bedside. Pt confirmed her will transport home, SW will continue to follow. MALIA Brothers
--- NOTE | 2017-01-15 16:11 | NUR ---
Pt to endo @ 0148.
--- NOTE | 2017-01-15 16:47 | PCM.HPANE ---
Patient Data Date of Service: Jan 15, 2017 Surgeon Admitting Provider:Gary French MD Attending Provider:Karlo Newton MD Primary Care Physician:Akil Other Provider: Reason for Visit Lower Gi Bleed, Anticoagulated LOWER GI BLEED, ANTICOAGULATED Ht/WT & BMI Height (Feet): 5 Height (Inches): 8.00 Weight (Kilograms): 67.500 Body Mass Index 22.00 Allergies Coded Allergies: No Known Allergies (Unverified , 01/14/17) Past Anesthesia History Anesthesia History: Denies:: Malignant Hyperthermia Diabetes History Hx Diabetes?: No MRSA MRSA: No Medications Blood Thinner: Coumadin Last Dose Blood Thinner: Jan 13, 2017 Hypertension Medication: No Home Meds Incl Beta Catarina: No Reported Medications Lamotrigine 150 Mg [id number] Mg PO BID 01/14/17 Fluvoxamine Maleate ER 150 Mg [id number] Mg PO HS 01/14/17 Propranolol HCl 10 Mg [id number] Mg PO TID PRN tremors 01/14/17 Valacyclovir HCl (Valtrex)1,000 Mg Tablet1,000 Mg PO DAILY PRN herpes b/out 01/14/17 Warfarin Sodium 5 Mg Tablet5 Mg PO DAILY except SUN 01/14/17 Warfarin Sodium 5 Mg Tablet2.5 Mg PO Q Thursday01/14/17 Levothyroxine 75 Mcg [id number] Mcg PO DAILY 01/14/17 History History of ENT Problems?: No HEENT History: Denies:: Hearing Problem Denture Type: None Teeth Condition: Within Normal Limits Hx of Heart Problems?: Yes Cardiovascular History: Denies:: Abdominal Aortic Aneurism Other Cardiac History: factor 5 leiden Hx of Respiratory Problem?: No Respiratory History: Denies:: Asthma Hx Neurologic Problems?: Yes Neurological History: Denies:: CVA Other Neurological Pertinent: essensial tremors Hx of GI Problems?: Yes Hx of Problems?: No Female Hx: Denies:: Currently Endometriosis Pelvic Inflammatory Problems with Breasts? Hx Musculoskeletal Problems?: No Hx of Psycho/Social Problems?: Yes Psycho Social History: Positive for:: Hx Depression Hx Surgeries?: No Hx Any Other Health Problems?: Yes Other History: Positive for:: Thyroid Disease History Blood Transfusions: Positive for:: Accept Blood Products? Denies:: Blood Transfusions Hx Diabetes: No Other Pertinent History: hx of DVTs - multiple Hx Alcohol Use: Yes (daily bottle of wine)Hx Substance Use: No Smoking Status: Former Smoker Unknown if Ever Smoker Stop/Bang Treated for Sleep Apnea?: No Do You Have a CPAP Machine?: No S-Snoring: Do You Snore Loudly: No T-Tired: feel tired, fatigued: No O-Obsered: Observed not breath: No P-Blood Pressure: treated: No B- Body Mass Index > 35 kg/m2: No A- Age over 50: Yes N- Neck Large Circumference: No G- Gender Male: No AMADOR Total Score: 1 AMADOR Risk Assessment: Low Risk, <3 Yes Risk Assessment Category Category 1A: Patient has history of documented sleep apnea, and HAS NOT received any narcotic, sedative or anesthesia administration during this stay. Category 1B: Patient has history of documented sleep apnea, and HAS received any narcotic , sedative or anesthesia administration during this stay Category 2: Patient has SUSPECTED Obstructive Sleep Apnea, and HAS received any narcotic , sedative or anesthesia administration during this stay. Category 3: Patient has SUSPECTED Obstructive Sleep Apnea and HAS NOT received narcotic, sedative or anesthesia administration during this stay. Category 4: Outpatient in Procedural Areas with known sleep apnea or who screen positive for High Risk via the STOP/BANG questionnaire. Low Risk, <3 Yes Exam Exam Vital Signs Vital Signs Date Time Temp Pulse Resp B/P Pulse Ox O2 Delivery O2 Flow Rate FiO2 01/15/17 16:31 37 61 17 117/77 99 Room Air 01/15/17 15:00 36.6 63 16 111/70 99 Room Air 01/15/17 09:56 36.6 63 16 112/69 97 Room Air General Appearance: Alert, Oriented X3 HEENT/AIRWAY: MP 2 Lungs: Clear to Auscultation Heart: Regular Rate/Rhythm Meds/Labs/Diagnostics Admission Meds Current Medications Sodium Chloride (Normal Saline) 1,000 ml @ 0 mls/hr Q0M ONCE IV Last administered on 01/14/17 17:04; Start 01/14/17 at 16:55; Stop 01/14/17 at 16:56 ; Status DC Ondansetron HCl 4 mg 4 mg STK-MED ONCE .ROUTE Last administered on 01/14/17 17 :04; Start 01/14/17 at 16:58; Stop 01/14/17 at 16:59; Status DC Sodium Chloride (Normal Saline) 1,000 ml @ 100 mls/hr Q10H IV Last administered on 01/15/17 05:21; Start 01/14/17 at 18:48 Levothyroxine Sodium (Synthroid) 75 mcg DAILYAC PO Last administered on 09:51; Start 01/15/17 at 07:30 Polyethylene Glycol/ Electrolytes (Colyte) 4,000 ml ONCE ONCE PO Last administered on 01/14/17 23:10; Start 01/14/17 at 21:50; Stop 01/14/17 at 22:02 ; Status DC Lamotrigine (LaMICtal) 75 mg BID PO Last administered on 01/15/17 09:51; Start 01/14/17 at 22:20 Patient Own Medication (Patient's Own -> Oral Medication) 1 ea HS PO Last administered on 01/14/17 23:11; Start 01/14/17 at 21:00 Labs Test 01/14/17 14:43 01/14/17 15:45 01/14/17 16:21 01/15/17 05:12 Hold Urine Received (Received) Prothrombin Time 18.7sec (8.1-12.5) Prothromb Time International Ratio 1.73ratio Urine Color Straw (YELLOW) Urine Appearance Clear (CLEAR,HAZY) Urine pH 7.0 (5.0-8.0) Urine Specific [place] 1.010 (1.003-1.035) Urine Protein Negativemg/dL (NEG,TRACE) Urine Glucose (UA) Negativemg/dL (NEGATIVE) Urine Ketones Negativemg/dL (NEGATIVE) Urine Occult Blood Trace (NEGATIVE) Urine Nitrite Negative (NEGATIVE) Urine Bilirubin Negative (NEGATIVE) Urine Urobilinogen Normalmg/dL (NORMAL) Urine Leukocyte Esterase Negative (NEGATIVE) Urine RBC 0-2/hpf (0-2) Urine WBC 0-5/hpf (0-5) Urine Epithelial Cells Few/hpf (NONE-MOD) Urine Crystals None seen (NONE SEEN) Urine Bacteria Few/hpf (NONE-FEW) Urine Hyaline Casts None/lpf (NONE) Urine Granular Casts None seen (NONE SEEN) Urine Waxy Casts None seen (NONE SEEN) Urine Red Blood Cell Casts None seen (NONE SEEN) Urine White Blood Cell Casts None seen (NONE SEEN) Urine Mucus None seen (None Seen) Urine Trichomonas None seen (NONE SEEN) Urine Yeast None (NONE SEEN) Urinalysis Comment None Urine Culture Reflexed Not indicated White Blood Count 10.6th/mm3 (3.8-10.1) Red Blood Count 4.75mil/mm3 (3.90-5.20) Hemoglobin 14.8g/dL (12.0-15.6) Hematocrit 44.9% (35.0-46.0) Mean Corpuscular Volume 94.5fL (81-100) Mean Corpuscular Hemoglobin 31.2pg (27.0-35.0) Mean Corpuscular Hemoglobin Concent 33.0% (32.0-37.0) Red Cell Distribution Width 13.7% (12.3-15.4) Platelet Count 200bil/L (150-400) Neutrophils (%) (Auto) 79.2% (40-74) Lymphocytes (%) (Auto) 12.3% (14-46) Monocytes (%) (Auto) 7.3% (4-12) Eosinophils (%) (Auto) 0.8% (0-5) Basophils (%) (Auto) 0.2% (0-3) Sodium Level 143mEq/L (134-144) Potassium Level 4.2mEq/L (3.5-5.2) Chloride Level 107mEq/L (97-108) Carbon Dioxide Level 18mmol/L (18-29) Blood Urea Nitrogen 6mg/dL (6-24) Creatinine 0.59mg/dL (0.57-1.00) Estimat Glomerular Filtration Rate 154mL/min (>59) Glucose Level 113mg/dL (60-99) Calcium Level 8.8mg/dL (8.5-10.1) Total Bilirubin 0.4mg/dL (0.0-1.2) Aspartate Amino Transf (AST/SGOT) 23U/L (0-50) Alanine Aminotransferase (ALT/SGPT) 15U/L (0-32) Alkaline Phosphatase 95U/L (25-150) Total Protein 6.5g/dL (6.4-8.4) Albumin 4.6g/dL (3.4-5.0) Plan Impression Patient chart reviewed, patient interviewed and anesthestic plan with risks, benefits, and alternatives discussed, and informed consent obtained. ASA Physical Status: ASA2 Mod Systemic Disease Anesthetic Plan: GA Bene/Risks/Altern/Consents: Yes HP Complete Prior to Induction: Yes Fawad Gonzales MD Jan 15, 2017 16:47
--- NOTE | 2017-01-15 18:29 | NUR ---
Post op Pt arrived back from Endo @ 1745. no c/o pain; no nausea. Care notes given on new meds and recommended diet. Care conts
--- NOTE | 2017-01-15 19:17 | ENDO ---
[address] [address] ENDOSCOPY PROCEDURE PATIENT: PRASHANTH CHAMBERLAIN : 1965 MR#: [id number] ADMIT: 01/14/2017 JOB ID: [id number] DATE OF SERVICE: 01/15/2017 PREOPERATIVE DIAGNOSIS(ES): Bloody diarrhea. POSTOPERATIVE DIAGNOSIS: Loss of architecture and vascularity from 45 cm from the anus to 25 cm from the anus and mild erythema in the rectum suspicious for ulcerative colitis status post biopsy. ANESTHESIA: Monitored anesthesia care. COMPLICATION: None. ESTIMATED BLOOD LOSS: Minimal. DESCRIPTION OF PROCEDURE: After risks and benefits were explained to the patient, informed consent was obtained. After anesthesia administered, the colonoscope was inserted from the rectum to the terminal ileum and mucosa carefully examined. Prep of the patient was fair. After procedure was done, the scope withdrawn and procedure terminated. On inspection of the anus, no masses, hemorrhoids, ulcers, fissures that were seen. Throughout the entire examination, there was loss of the architecture and vascularity with ulcerations seen from 45-25 cm from the anus suspicious for ulcerative colitis status post biopsy. There was mild erythema also seen in the rectum. Intubation of the terminal ileum appeared normal. Biopsies taken of terminal ileum, random colon and the area in which had loss of architecture and vascularity from 45-25 cm from the anus. Retroflexion was not performed due to active colitis. IMPRESSIONS: 1. Loss of architecture and vascularity with ulcerations seen from 45-25 cm from the anus, status post biopsy, with mild erythema in the rectum. RECOMMENDATIONS: 1. Soft, low-residue diet, avoid lactose. 2. IV Solu-Medrol. 3. Lialda 2.4 g by mouth once a day. 4. Rowasa enemas. 5. Await biopsy results. Will continue to follow. [facility]
--- NOTE | 2017-01-15 20:10 | HP ---
[address] [address] HISTORY AND PHYSICAL PATIENT: PRASHANTH CHAMBERLAIN : 1965 MR#: [id number] ADMIT: 01/14/2017 JOB ID: [id number] REFERRING PROVIDER: Karlo Newton MD REASON FOR REFERRAL: A 51-year-old woman with acute gastrointestinal bleed in the setting of chronic anticoagulation for hypercoagulability related to factor V Leiden. DIAGNOSES: 1. The patient is on chronic anticoagulation at least since 2009 for unprecipitated DVT in the setting of factor V Leiden. She does not know whether she is heterozygous or homozygous. She also reports she has an MTHFR mutation. She had a previous DVT while on oral contraceptives at age 18, both DVTs were left leg. 2. 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 3. AB zero. 4. Hypothyroidism on Synthroid. 5. Essential tremor. 6. Bipolar disorder. 7. Elevated HDL. 8. The patient reports no surgeries. 9. Excessive ETOH consumption, one bottle of wine five days a week. HISTORY OF PRESENT ILLNESS: This is a 51-year-old woman who is on chronic warfarin, who was sent from [facility] according to the H and P for bloody diarrhea starting the night before admission. She describes having first a loose stool and then passing almost pure blood with some clots. By mid day the day of this hospitalization she states that she was passing pink material but not kyle blood. She had had no recent febrile or other illness, just weakness and diaphoresis. She also, according to the H and P, reported two months history of bilateral lower leg cramping making it difficult to ambulate with associated tachycardia. At the time of hospitalization she had a hemoglobin of 14.7 and a hematocrit 44.9, white count 9.2, and a platelet count of 243. INR was 1.73. Chemistries were completely normal, with normal electrolytes and liver enzymes, and BUN 12, creatinine 0.59. In the emergency department she had had a temperature 36.6, pulse 74, respiratory rate 18, blood pressure 132/81. During the hospitalization she did not require blood transfusion. She underwent a CT abdomen and pelvis which showed wall thickening of the distal transverse and left colon compatible with colitis with a differential diagnosis including infection and inflammatory disease. A colonoscopy was performed but the results are not in the EMR yet. She is anticipated to be stable and possibly ready for discharge tomorrow. Hematology has asked for advice on how long to wait before reinitiating anticoagulation as well as long-term management. The patient reports that she had her first thrombosis as a left groin thrombosis at age 18 on oral contraceptives and was anticoagulated for 10 days in the hospital. She does not recall being placed on warfarin after that. She did well and did not have any further thromboses until 2009, when she had a spontaneous DVT involving the left medial upper thigh, and at that time she was discovered to have factor V Leiden; she does not know whether she was heterozygous or homozygous. She also states she has an MTHFR mutation. At that point she was placed on lifelong anticoagulation and takes warfarin 5 mg every day except 2.5 mg on Thursday. She has her own testing device for anticoagulation. FAMILY HISTORY: The patient states that her mother had a large clot at age 70 and great grandmother had a clot. The father's side is from [place] and she is unaware of their history. Her father is 75 and has kidney stones but no clotting problems. The patient has no children of her own. She has one brother who is well and has not had clotting problems. 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 She now lives on [facility]. 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 She was born in [facility] and escaped at age [age] with the help of the [facility] embassy and family. HABITS: The patient is a nonsmoker. She did smoke for approximately three years as a teenager. She drinks two bottles of wine with her five days a week; that is, five bottles of wine for herself each week. She states she is embarrassed about it and needs to quit or cut down. She has no medication allergies. She does receive a flu vaccination every year. PAST MEDICAL HISTORY: Significant for hypothyroidism, essential tremor, bipolar disorder, elevated HDL. No surgeries. REVIEW OF SYSTEMS: Generally, she has no recent febrile illnesses. No bleeding like this has ever happened before. She has had no stroke, seizure, or loss of consciousness. She states she did have an MRI of the brain several years ago which showed some microvascular changes. She is not sure what the details are on that. Respiratory: No cough or dyspnea. Cardiac: No exertional chest pain or palpitations; however, when she walks she states she feels that the blood is building up in her legs and she becomes tachycardic and dyspneic, and is worried that she has lost some of the venous return in her lower extremities and states that she felt worse when she was off warfarin at one time. This symptomatology has not yet been further worked up. GI: No change in appetite. No nausea, dysphagia, or change in bowel habits until the time she developed hematochezia. : No hematuria or dysuria. Musculoskeletal: No muscle or joint aches and pains, except for the symptoms described above.? No weight loss. The patient is 5 feet 8 inches tall and weighs she states 145 normally. MEDICATIONS: Currently she takes mesalamine 2.4 g daily, midazolam, fentanyl (I believe that was for the procedure), methylprednisolone 60 mg, polyethylene glycol 4000 mL, valacyclovir 1000 mg, levothyroxine 75 mcg, hydromorphone 0.5 mg, lamotrigine 75 mg, fluvoxamine maleate ? dose, ondansetron, senna, antacid, acetaminophen, propranolol 10 mg. PHYSICAL EXAMINATION: This is a 172.72 cm, 67.5 kg individual. BSA 1.80 mm2. BMI 22.6 kg/m2. Temperature is 37, pulse 61, respiratory rate 17, blood pressure 117/77, pulse ox 99% on room air. General: She looks reasonably comfortable and is a good historian. Head and neck: Pupils equal, round, and reactive. No icterus. No conjunctivitis. Oral and oropharyngeal mucosa are unremarkable. Teeth are in good repair. Lymph nodes are negative in the neck and supraclavicular areas. Lung long are clear to auscultation and percussion. Cardiac: Rhythm is regular, without murmur or peripheral edema. Abdomen: Soft, nontender. Without organomegaly, masses, or ascites. Extremities: There is some swelling of the upper medial left thigh ankle pointed out by the patient. It is not very noticeable and it is not tender. There is no cord and no calf tenderness. There is no edema in either lower extremity. Neurological: Nonfocal. LABORATORY VALUES: The white count is 10.6 with 79.2 segs, hemoglobin 14.8, hematocrit 44.9, platelets 200. BUN and creatinine are 6 and 0.59. Electrolytes normal. Glucose 113 nonfasting. AST, ALT, alkaline phosphatase, bilirubin, total protein, and albumin are all normal. IMAGING: As described above. This included abdomen CT scan and a venous duplex which showed no evidence of lower extremity DVT. ASSESSMENT AND RECOMMENDATIONS: This is a patient who according to her history is appropriately on long-term anticoagulation. Given the GI bleed, which appears by the workup so far to be colonic in origin, she could restart on warfarin as soon as the day of discharge, assuming that she is no longer actively bleeding. Warfarin will take at 2-4 days to be come physiologically therapeutic for the vitamin K dependent factors to become therapeutic. In terms of long-term anticoagulation I told the patient that we could review her history more thoroughly and go over documentation but that she presents a very convincing history for needing to be on long-term anticoagulation and therefore does not a priori need a regular hematology followup. It would be helpful to obtain her testing for factor V Leiden and if she is homozygous that would mean that both her father and mother could transmit this to her brother and in turn it could be transferred to the children, and it would be important for them to know about this, particularly if they were to undergo surgical procedures. The MTHFR mutation does not affect the decision making. Beyond that, I think she can see Hematology on an as-needed basis. She understands the condition very well and this has been managed for a long period of time. She was originally worked up by a automatic grinder operator in [place] who subsequently retired and she has not sought hematology followup since then. I appreciate being asked to follow up on this patient and will be happy to continue to provide management advice as needed. She did ask for a vascular surgery consultation. I suggested that the symptoms she is describing in her lower extremity including tachycardia on exertion may best be evaluated by a vascular specialist, which could be done as an outpatient. I have put a request for that in her chart. DANNI
[2017-01-15] MEDS: FLUVOXAMINE MALEATE 150 MG PO SCH (21:43)
[2017-01-15] MEDS: MESALAMINE 4 GM/60 ML RECTAL SCH (21:43)
[2017-01-15] MEDS: MethylprednisoLONE Sodium Succinate 40 mg/mL Inj IVPUSH SCH (21:43)
[2017-01-16 04:50] VITALS: BP 104/67; PULSE 69; RESP 17; O2SAT 98
--- NOTE | 2017-01-16 05:06 | NUR ---
Sleep Patient stated she was really looking forward to getting sleep last night. Patient A&OX3. Vitals stable. Patient denies having much pain. Up independent to bathroom, steady on feet. Patient will need a ferry pass upon discharge. Lives on [place].
[2017-01-16 05:17] LABS: BASOPHILS % (AUTO) 0 % (0-3); EOSINOPHILS % (AUTO) 0 % (0-5); MONOCYTES % (AUTO) 1.3 % (4-12); NEUTROPHILS % (AUTO) 92.4 % (40-74); Platelet Count 197 bil/L (150-400)
[2017-01-16] MEDS ORDERED: fentaNYL-PF 50 mCg/mL 2 mL Inj IVPUSH PRN (06:00)
--- NOTE | 2017-01-16 08:00 | PCM.PNMED ---
Subjective Date of Service Jan 16, 2017 Subjective Patient doing welll. Brought up the concern of LE claudication. Says when she walks, she has to take a pause before she can start again due to stiffness in her legs. Vitals stable. Exam Vital Signs Vital Sign - Last Date Time Temp Pulse Resp B/P Pulse Ox O2 Delivery O2 Flow Rate FiO2 01/16/17 04:50 36.5 69 17 104/67 98 Room Air Intake and Output 01/15/17 01/15/17 01/16/17 Cumulative From/Thru 15:00 23:00 07:00 01/14/17 14:31 - 01/16/17 05:54 Intake Total 1898 ml 1000 ml 8021 ml Output Total 1600 ml 950 ml 2550 ml Balance 298 ml 50 ml 5471 ml Intake Oral 600 ml 1000 ml 5720 ml IV Total 1298 ml 2301 ml Output Urine Total 400 ml 950 ml 1350 ml Urine/Stool Mix 1200 ml 1200 ml # Voids 11 # Bowel Movements 0 10 Exam Gen.: Age-appropriate female in no acute distress CV: Regular rate and rhythm, no murmurs, rubs, gallops Pulmonary: Clear to auscultation bilaterally no wheezes, rales, rhonchi Abd: Soft, nondistended. Tenderness in the lower quadrants L>R. No guarding or rebound. Bowel sounds present. Extremities: No clubbing, cyanosis, or edema. Weak distal pulses bilaterally. Neuro: Alert and oriented 3, CN II through XII intact. Muscle strength 5 out of 5 globally without focal deficit. Psych: Normal mood and affect Lab and Diagnostics Result Diagram: 01/16/17 0455 01/15/17 0512 Microbiology Stool PCR panel, bach negative X-Rays, CTs and MRIs Abd CT 01/14/17 IMPRESSION: 1. Circumferential wall thickening involving the distal transverse and left colon compatible with nonspecific colitis. Differential diagnosis includes inflammatory and infectious etiologies as well as less likely neoplastic etiology. 2. 6.1 cm heterogeneously enhancing uterine mass possibly representing uterine fibroid. Recommend gynecology consultation. 3. Venous varices in the subcutaneous fat of the anterior lower pelvis. Recommend bilateral lower extremity Doppler ultrasound to exclude chronic venous thrombosis. 4. No dilated loops of bowel. 5. No free fluid or air. Dictated by: Bibi Crum MD, PhD on 01/14/2017 at 17:41 Approved by: Bibi Crum MD, PhD on 01/14/2017 at 17:47 12-lead ECG NSR, rate 68 Assessment & Plan Ms. Anthony is a 51-year-old female with a past medical history significant for factor V Leiden with multiple DVTs on warfarin was sent from [facility] for ongoing episodes of bloody diarrhea which started last night and are ongoing. Lower GI bleed, present on admission. Acute. Ongoing. - Noted endsocopic results: Loss of architecture and vascularity with ulcerations seen from 45-25 cm from the anus, status post biopsy, with mild erythema in the rectum - started on mesalamine and iv steroids - Hgb stable, will keep monitoring - GI following, appreciate recs Factor V Leiden with prior DVT on warfarin, present on admission. Chronic. - Patient usually on warfarin 5 mg daily with 2.5 mg on Thursday - INR 1.73 on admission - Holding warfarin for now due to GI bleed, will resume if HGb stays stable with no signs of bleeding at discharge - CT revealed venous varices and anterior lower pelvis; recommend bilateral lower extremity ultrasound - Ultrasound LE negative for DVTs - Dr. Melendez saw the patient, appreciate the recommendations LE claudication - patient's symptoms typical - will get arterial doppler LE Uterine Fibroid - as noted in CT - patient has seen team driver in the past, work up done, was told that it is not growing and is stable - follow up outpatient History of tremors, present on admission. Chronic. - Patient reports workup was done but negative - Continue propranolol 10 mg 3 times daily as needed Depression, present on admission. Chronic. - Continue fluvoxamine 150 mg at night - Continue lamotrigine 75 mg twice daily Hypothyroidism, present on admission. Chronic. - Continue levothyroxine 75 mcg daily Alcohol use disorder, present on admission. Chronic. - Pt denies any withdrawal symptoms ever but has at least 1 bottle of wine daily - Monitor for withdrawal symptoms Acetaminophen as needed for mild pain, fever, headache. Bowel regimen as needed. Zofran for nausea. Subcutaneous heparin held for GI bleed. SCDs on and in place. Patient status: Patient was admitted to the inpatient service with length of stay likely >2 nights due to severity of presenting symptoms, complex medical workup, and ongoing treatment plan. VTE Mechanical Devices: Intermittant Pneumatic CD Resuscitation Status: CPR: Attempt Resuscitation Time spent 35 mins Lamar,Karlo MD Jan 16, 2017 08:00
[2017-01-16] MEDS: MethylprednisoLONE Sodium Succinate 40 mg/mL Inj IVPUSH SCH (09:27)
[2017-01-16] MEDS: lamoTRIgine 25 mg Tablet PO SCH ×2 (09:28→21:37)
[2017-01-16] MEDS: Mesalamine 1.2 Gm ER Tablet PO SCH (09:29)
--- NOTE | 2017-01-16 10:13 | PCM.PNMED ---
Subjective Date of Service Jan 16, 2017 Subjective GASTROENTEROLOGY CONSULT: Attending Physician: Sher Blackwell MD Resident Physician: Vesna Kunz DO Colonoscopy on 01/15 with findings consistent with ulcerative colitis, biopsies pending. She tolerated the procedure well and there were no acute events overnight. This morning patient reports mild abdominal pain throughout the lower quadrants. Pain is tolerable and she states it seems to be improving. She denies nausea, vomiting, fever or chills and states that she has not yet had a bowel movement; which she attributes to lack of food. Exam Vital Signs Vital Sign - Last Date Time Temp Pulse Resp B/P Pulse Ox O2 Delivery O2 Flow Rate FiO2 01/16/17 04:50 36.5 69 17 104/67 98 Room Air Intake and Output 01/15/17 01/15/17 01/16/17 Cumulative From/Thru 15:00 23:00 07:00 01/14/17 14:31 - 01/16/17 05:54 Intake Total 1898 ml 1000 ml 8021 ml Output Total 1600 ml 950 ml 2550 ml Balance 298 ml 50 ml 5471 ml Intake Oral 600 ml 1000 ml 5720 ml IV Total 1298 ml 2301 ml Output Urine Total 400 ml 950 ml 1350 ml Urine/Stool Mix 1200 ml 1200 ml # Voids 11 # Bowel Movements 0 10 Exam General: Well appearing, middle-aged female in no acute distress. Lungs: Clear to auscultation bilaterally with no crackles, wheezes, or rhonchi. Cardiovascular: Regular rate/rhythm. No murmurs/rubs/gallops Abdomen: Soft, non-distended, mildly tender to palpation across lower abdomen, no masses. Hypoactive bowel tones Extremities: No edema. Distal pulses diminished but equal bilaterally. Skin: Warm, dry without obvious rashes or ulcerations. Neurological: AOx3, no focal neurologic deficit. Normal speech. IVs and Medications Medications Reviewed: Medications were reviewed in detail Lab and Diagnostics Laboratory Tests Test 01/16/17 04:55 White Blood Count 8.6th/mm3 (3.8-10.1) Red Blood Count 4.32mil/mm3 (3.90-5.20) Hemoglobin 13.4g/dL (12.0-15.6) Hematocrit 40.6% (35.0-46.0) Mean Corpuscular Volume 94.0fL (81-100) Mean Corpuscular Hemoglobin 31.0pg (27.0-35.0) Mean Corpuscular Hemoglobin Concent 33.0% (32.0-37.0) Red Cell Distribution Width 13.3% (12.3-15.4) Platelet Count 197bil/L (150-400) Neutrophils (%) (Auto) 92.4% (40-74) Lymphocytes (%) (Auto) 6.2% (14-46) Monocytes (%) (Auto) 1.3% (4-12) Eosinophils (%) (Auto) 0% (0-5) Basophils (%) (Auto) 0% (0-3) Microbiology 01/14/17 Stool PCR - Negative Result Diagram: 01/16/17 0455 01/15/17 0512 Microbiology Stool PCR panel, bach negative X-Rays, CTs and MRIs Abd CT 01/14/17 IMPRESSION: 1. Circumferential wall thickening involving the distal transverse and left colon compatible with nonspecific colitis. Differential diagnosis includes inflammatory and infectious etiologies as well as less likely neoplastic etiology. 2. 6.1 cm heterogeneously enhancing uterine mass possibly representing uterine fibroid. Recommend gynecology consultation. 3. Venous varices in the subcutaneous fat of the anterior lower pelvis. Recommend bilateral lower extremity Doppler ultrasound to exclude chronic venous thrombosis. 4. No dilated loops of bowel. 5. No free fluid or air. Dictated by: Bibi Crum MD, PhD on 01/14/2017 at 17:41 Approved by: Bibi Crum MD, PhD on 01/14/2017 at 17:47 12-lead ECG NSR, rate 68 Additional Diagnostics 01/15/2017 - COLONOSCOPY IMPRESSION: - Loss of architecture and vascularity with ulcerations seen from 45-25 cm from the anus, status post biopsy, with mild erythema in the rectum. RECOMMENDATIONS: 1. Soft, low-residue diet, avoid lactose. 2. IV Solu-Medrol. 3. Lialda 2.4 g by mouth once a day. 4. Rowasa enemas. 5. Await biopsy results. Will continue to follow. Sher Blackwell MD 01/15/17 9286 Assessment & Plan Ms. Anthony is a 51-year-old with a history of hypothyroidism and factor V Leiden with multiple DVTs, chronically anticoagulated on warfarin who presented to the ED with a one day history of bloody diarrhea. GI consulted for further evaluation of abdominal pain and hematochezia. Acute lower GI bleed with colonoscopy findings possibly showing ulcerative colitis. -Patient presented with bright red blood per rectum for 24-48hrs without prior history of GI bleeding. Hemodynamically stable at presentation with Hb of 14.7. -CT abdomen significant for wall thickening of distal transverse and left colon compatible with colitis. Unlikely infectious as PCR panel is negative, no infectious symptoms, normal white blood cell count. -Colonoscopy on 01/15 significant for loss of architecture and vascularity with ulcerations seen from 45-25 cm from the anus, with mild erythema in the rectum. RECOMMENDATIONS: -Decrease Solu-medrol to 60mg IV BID and continue to titrate down. Transition to Prednisone 60mg PO daily for two weeks at discharge -Soft, low-residue diet, avoid lactose. -Lialda 2.4 g by mouth once a day. -Rowasa enemas. -Await biopsy results. Will continue to follow. -No indication for antibiotics -Followup with GI in 2 weeks upon discharge Additional problems managed by primary medicine team: -Factor V Leiden with prior DVT on warfarin -Calf pain with venous varices noted on CT. -History of essential tremor -Depression -Hypothyroidism -Alcohol use disorder . Pain Evaluation: Adequate Pain Control VTE Mechanical Devices: Intermittant Pneumatic CD Resuscitation Status: CPR: Attempt Resuscitation Vesna Kunz DO Jan 16, 2017 08:57 Sher Blackwell MD Jan 16, 2017 12:51
[2017-01-16 11:55] VITALS: BP 115/77; PULSE 69; RESP 18; O2SAT 98
[2017-01-16] MEDS: HYDROmorphone 0.5 mg/0.5 mL iSecure Syringe IVPUSH PRN (14:20)
--- NOTE | 2017-01-16 14:48 | DRSVH ---
PROCEDURE: US DUPLEX DOPPLER BILATERAL LEG ARTERIES ([id number]) INDICATIONS: Claudication TECHNIQUE: Color and pulse Doppler interrogation was performed of both lower extremity arterial systems, with im age documentation. COMPARISON: None. FINDINGS: Right lower extremity: Vascular Ultrasound Procedure Report Findings(Artery of Lower Extremity)(Right) Common Femoral Artery(Distal) Velocity: 51.70 cm/s Profunda Femoris Artery(Proximal) Velocity: 24 cm/s Superficial Femoral Artery(Proximal) Velocity: 48.20 cm/s Superficial Femoral Artery(Mid-longitudinal) Velocity: 10.60 cm/s Superficial Femoral Artery(Distal) Velocity: 43.70 cm/s Popliteal Artery(Mid-longitudinal) Velocity: 21.50 cm/s Posterior Tibial Artery(Distal) Velocity: 28.50 cm/s Dorsalis Pedis Artery(Distal) Velocity: 33.30 cm/s Greyscale findings: Normal. Left lower extremity: Vascular Ultrasound Procedure Report Findings(Artery of Lower Extremity)(Left) Common Femoral Artery(Distal) Velocity: 62.60 cm/s Profunda Femoris Artery(Proximal) Velocity: 3.70 cm/s Superficial Femoral Artery(Proximal) Velocity: 50 cm/s Superficial Femoral Artery(Mid-longitudinal) Velocity: 58.80 cm/s Superficial Femoral Artery(Distal) Velocity: 60 cm/s Popliteal Artery(Mid-longitudinal) Velocity: 23.90 cm/s Posterior Tibial Artery(Distal) Velocity: 29.20 cm/s Dorsalis Pedis Artery(Distal) Velocity: 24.60 cm/s Greyscale findings: Normal. IMPRESSION: No peripheral arterial stenosis bilaterally. Dictated by: Cas Zarate [facility] Interpreted: Roxanna Pena MD on 01/16/2017 at 10:17 Approved by: Roxanna Pena M.D. on 01/16/2017 at 14:46
--- NOTE | 2017-01-16 15:18 | NUR ---
Pain Patient states that pain tolerable without medication for most of shift. Patient did request one dose of ordered pain medication, administered with good results. Patient advised that it will be best to taper off IV pain medication use in order to prepare for discharge. Patient agreeable, care is ongoing.
--- NOTE | 2017-01-16 19:11 | NUR ---
Transfer of care Care of pt. transferred to [place] at 1500 from [facility]. Pt. denies pain, chest pain, SOB, N/V. Independent in room with steady gait. No questions or concerns at this time.
[2017-01-16 19:45] VITALS: BP 117/76; PULSE 68; RESP 16; O2SAT 97
[2017-01-16] MEDS ORDERED: MethylprednisoLONE Sodium Succinate 40 mg/mL Inj IVPUSH SCH (20:30)
[2017-01-16] MEDS: FLUVOXAMINE MALEATE 150 MG PO SCH (21:38)
[2017-01-16] MEDS: MESALAMINE 4 GM/60 ML RECTAL SCH (21:38)
--- NOTE | 2017-01-17 03:35 | NUR ---
Activity Pt has had no c/o pain this shift. Denies SOB, CP, N/V. Ind in room to [facility]. Pt requested and able to self perform rectal enema administration after instructions given. Has had no other questions or concerns. Pt requested to stay one more night in the hospital due to home being on [place]. Plan is to possibly discharge home tomorrow pending pt condition.
[2017-01-17 04:33] LABS: BASOPHILS % (AUTO) 0 % (0-3); EOSINOPHILS % (AUTO) 0.1 % (0-5); MONOCYTES % (AUTO) 1.4 % (4-12); Mean Corpuscular Hemoglobin 31.3 pg (27.0-35.0); Mean Corpuscular Volume 92.8 fL (81-100); NEUTROPHILS % (AUTO) 91.4 % (40-74); Platelet Count 205 bil/L (150-400)
[2017-01-17 04:40] VITALS: BP 108/68; PULSE 65; RESP 16; O2SAT 95
[2017-01-17] MEDS ORDERED: MethylprednisoLONE Sodium Succinate 40 mg/mL Inj IVPUSH SCH (08:30)
[2017-01-17] MEDS: Mesalamine 1.2 Gm ER Tablet PO SCH (08:56)
[2017-01-17] MEDS: lamoTRIgine 25 mg Tablet PO SCH (08:57)
[2017-01-17 09:11] LABS: INR 1.37 ratio
[2017-01-17] MEDS ORDERED: PRE20 PO (10:08)
[2017-01-17] MEDS ORDERED: MESA1.2T2 PO (10:08)
--- NOTE | 2017-01-17 10:23 | PCM.DIMED ---
Discharge Instructions Date of Service Jan 17, 2017 Dates of Hospitalization Jan 14, 2017 at 18:42 Discharge Diagnosis Discharge Diagnosis Ulcerative collitis Diet Discharge Diet: Other (Soft, low-residue diet, avoid lactose) Activity Discharge Activity: No restrictions Call your provider Call your provider for: Fever or Chills, Bleeding, Excessive diarrhea Patient Instructions Follow-up plan Follow up at Coumadin clinic in 2-3 days Follow-up with PCP in: 1 week Provider: Sher Blackwell MD Follow-up in: 2 weeks Karlo Newton MD Jan 17, 2017 10:23
--- NOTE | 2017-01-17 10:27 | PCM.DC.MED ---
Discharge Summary Date of Service Jan 17, 2017 Dates of Hospitalization Date of Hospital Admission Jan 14, 2017 at 18:42 Date of Discharge: Jan 17, 2017 Providers: Admitting Physician: Gary French MD Primary Care Physician: Akil Attending Physician: Isra Newton MD Diagnosis at Time of Discharge Diagnosis at Time of Discharge Ulcerative collitis Procedures XRay, CTs & MRIs Abd CT 01/14/17 IMPRESSION: 1. Circumferential wall thickening involving the distal transverse and left colon compatible with nonspecific colitis. Differential diagnosis includes inflammatory and infectious etiologies as well as less likely neoplastic etiology. 2. 6.1 cm heterogeneously enhancing uterine mass possibly representing uterine fibroid. Recommend gynecology consultation. 3. Venous varices in the subcutaneous fat of the anterior lower pelvis. Recommend bilateral lower extremity Doppler ultrasound to exclude chronic venous thrombosis. 4. No dilated loops of bowel. 5. No free fluid or air. Dictated by: Bibi Crum MD, PhD on 01/14/2017 at 17:41 Approved by: Bibi Crum MD, PhD on 01/14/2017 at 17:47 ECG 12 Lead NSR, rate 68 Other Diagnostics 01/15/2017 - COLONOSCOPY IMPRESSION: - Loss of architecture and vascularity with ulcerations seen from 45-25 cm from the anus, status post biopsy, with mild erythema in the rectum. RECOMMENDATIONS: 1. Soft, low-residue diet, avoid lactose. 2. IV Solu-Medrol. 3. Lialda 2.4 g by mouth once a day. 4. Rowasa enemas. 5. Await biopsy results. Will continue to follow. Sher Blackwell MD 01/15/17 8574 Brief History GASTROENTEROLOGY CONSULT: Attending Physician: Resident Physician: Vesna Kunz DO Ms. Anthony is a 51-year-old with a history of hypothyroidism and factor V Leiden with multiple DVTs, chronically anticoagulated on warfarin who was transferred to [facility] from [facility] for hematochezia that started two days ago. Patient reports a history of chronic abdominal pain and cramping that is intermittent. She states that episodes occur a couple of times per year and typically last for several days and then resolve without treatment. She notes that this has been an issue for nearly twenty years. However, she states that she has never had blood in her stool before. She reports having an EGD done in the that showed gastritis and her last colonoscopy approximately 5 years ago she thinks was normal. She describes the abdominal pain as cramping, it does not radiate and it is mildly relieved with defecation. Associated symptoms include diaphoresis, generalized weakness, and a rapid heart rate. She denies nausea, vomiting, dietary or medication changes, recent travel or antibiotics. She states that she does not take NSAIDs, is a nonsmoker and drinks only 1 cup of coffee per day. When asked about alcohol intake she states that she probably drinks too much. She states that she shares 2 bottles of wine with her 3 -4 times per week. In the ED she was afebrile and normotensive with a BP of 132/81 and a heart rate in the 70s. She was maintaining oxygen saturations of 99-100% on room air. Labs including a CBC, CMP and UA were unremarkable. A CT abdomen was significant for circumferential wall thickening involving the distal transverse and left colon compatible with nonspecific colitis. Stool PCR is negative. Hospital Course Ms. Anthony is a 51-year-old female with a past medical history significant for factor V Leiden with multiple DVTs on warfarin was sent from [facility] for ongoing episodes of bloody diarrhea which started last night and are ongoing. Lower GI bleed, present on admission. Acute. Ongoing. - Noted endsocopic results: Loss of architecture and vascularity with ulcerations seen from 45-25 cm from the anus, status post biopsy, with mild erythema in the rectum - started on mesalamine and iv steroids , to continue oral steroids + mesalamine on dc - follow up with Dr. Blackwell in 2 weeks Factor V Leiden with prior DVT on warfarin, present on admission. Chronic. - Patient usually on warfarin 5 mg daily with 2.5 mg on Thursday - INR 1.73 on admission - warfarin restarted as per hem/onc recs - Ultrasound LE negative for DVTs - Dr. Melendez saw the patient, appreciate the recommendations LE claudication - patient's symptoms typical - arterial dopplers negative for any signs of stenosis Uterine Fibroid - as noted in CT - patient has seen manager credit risk in the past, work up done, was told that it is not growing and is stable - follow up outpatient History of tremors, present on admission. Chronic. - Patient reports workup was done but negative - Continue propranolol 10 mg 3 times daily as needed Depression, present on admission. Chronic. - Continue fluvoxamine 150 mg at night - Continue lamotrigine 75 mg twice daily Hypothyroidism, present on admission. Chronic. - Continue levothyroxine 75 mcg daily Alcohol use disorder, present on admission. Chronic. - Pt denies any withdrawal symptoms ever but has at least 1 bottle of wine daily - given susbtance abuse counselling Exam Vital Signs (Last) Date Time Temp Pulse Resp B/P Pulse Ox O2 Delivery O2 Flow Rate FiO2 01/17/17 04:40 36.6 65 16 108/68 95 Room Air Test 01/14/17 14:43 01/14/17 16:21 01/15/17 05:12 01/17/17 04:05 Hold Urine Received (Received) Urine Color Straw (YELLOW) Urine Appearance Clear (CLEAR,HAZY) Urine pH 7.0 (5.0-8.0) Urine Specific [place] 1.010 (1.003-1.035) Urine Protein Negativemg/dL (NEG,TRACE) Urine Glucose (UA) Negativemg/dL (NEGATIVE) Urine Ketones Negativemg/dL (NEGATIVE) Urine Occult Blood Trace (NEGATIVE) Urine Nitrite Negative (NEGATIVE) Urine Bilirubin Negative (NEGATIVE) Urine Urobilinogen Normalmg/dL (NORMAL) Urine Leukocyte Esterase Negative (NEGATIVE) Urine RBC 0-2/hpf (0-2) Urine WBC 0-5/hpf (0-5) Urine Epithelial Cells Few/hpf (NONE-MOD) Urine Crystals None seen (NONE SEEN) Urine Bacteria Few/hpf (NONE-FEW) Urine Hyaline Casts None/lpf (NONE) Urine Granular Casts None seen (NONE SEEN) Urine Waxy Casts None seen (NONE SEEN) Urine Red Blood Cell Casts None seen (NONE SEEN) Urine White Blood Cell Casts None seen (NONE SEEN) Urine Mucus None seen (None Seen) Urine Trichomonas None seen (NONE SEEN) Urine Yeast None (NONE SEEN) Urinalysis Comment None Urine Culture Reflexed Not indicated Sodium Level 143mEq/L (134-144) Potassium Level 4.2mEq/L (3.5-5.2) Chloride Level 107mEq/L (97-108) Carbon Dioxide Level 18mmol/L (18-29) Blood Urea Nitrogen 6mg/dL (6-24) Creatinine 0.59mg/dL (0.57-1.00) Estimat Glomerular Filtration Rate 154mL/min (>59) Glucose Level 113mg/dL (60-99) Calcium Level 8.8mg/dL (8.5-10.1) Total Bilirubin 0.4mg/dL (0.0-1.2) Aspartate Amino Transf (AST/SGOT) 23U/L (0-50) Alanine Aminotransferase (ALT/SGPT) 15U/L (0-32) Alkaline Phosphatase 95U/L (25-150) Total Protein 6.5g/dL (6.4-8.4) Albumin 4.6g/dL (3.4-5.0) White Blood Count 9.7th/mm3 (3.8-10.1) Red Blood Count 4.28mil/mm3 (3.90-5.20) Hemoglobin 13.4g/dL (12.0-15.6) Hematocrit 39.7% (35.0-46.0) Mean Corpuscular Volume 92.8fL (81-100) Mean Corpuscular Hemoglobin 31.3pg (27.0-35.0) Mean Corpuscular Hemoglobin Concent 33.8% (32.0-37.0) Red Cell Distribution Width 13.1% (12.3-15.4) Platelet Count 205bil/L (150-400) Neutrophils (%) (Auto) 91.4% (40-74) Lymphocytes (%) (Auto) 7.0% (14-46) Monocytes (%) (Auto) 1.4% (4-12) Eosinophils (%) (Auto) 0.1% (0-5) Basophils (%) (Auto) 0% (0-3) Test 01/17/17 08:02 Prothrombin Time 14.7sec (8.1-12.5) Prothromb Time International Ratio 1.37ratio Microbiology Results Stool PCR panel, bach negative Discharge Medications Discharge Medications Fluvoxamine Maleate ER (Fluvoxamine Maleate ER) 150 Mg Capsule 150 MG PO HS ( Reported) Lamotrigine (Lamotrigine) 150 Mg Tablet 75 MG PO BID (Reported) Levothyroxine (Levothyroxine) 75 Mcg Tablet 75 MCG PO DAILY (Reported) Mesalamine (Lialda) 1.2 Gm Tablet.dr 2.4 GM PO DAILY Prescribed by: ISRA NEWTON MD Prednisone (PredniSONE) 20 Mg Tablet 60 MG PO DAILY Prescribed by: ISRA NEWTON MD Warfarin Sodium (Warfarin Sodium) 5 Mg Tablet 2.5 MG PO Q THURSDAY (Reported) Warfarin Sodium (Warfarin Sodium) 5 Mg Tablet 5 MG PO DAILY except SUN (Reported ) As needed Propranolol HCl (Propranolol HCl) 10 Mg Tablet 10 MG PO TID PRN PRN tremors ( Reported) Valacyclovir HCl (Valtrex) 1,000 Mg Tablet 1,000 MG PO DAILY PRN PRN herpes b/ out (Reported) Followup Plan Follow-up plan Follow up at Coumadin clinic in 2-3 days Discharge Diet: Other (Soft, low-residue diet, avoid lactose) Discharge Activity: No restrictions Follow-up with PCP in: 1 week Provider: Sher Blackwell MD Follow-up in: 2 weeks Time spent 35mins Isra Newton MD Jan 17, 2017 10:27
--- NOTE | 2017-01-17 13:51 | NUR ---
Social Work: Readiness for Discharge/Multidisciplinary Rounds D: EMR reviewed. Pt is on day 3 of hospitalization. Pt discussed in multidisciplinary rounds and is medically stable to discharge home today with family via POV. SW provided CD resources and provided CDP assessment - No further SW needs identified, no MD orders received. SW will continue to follow until time of discharge. A: Pt who is independent at baseline P: Pt to discharge home with family via POV. No SW needs identified, no MD orders received. SW will continue to follow until time of discharge. MALIA Miranda
--- NOTE | 2017-01-17 14:49 | NUR ---
Discharge Pt discharged to home with spouse via private vehicle at 1445 hrs. PIV removed intact. VSS. No c/o pain. No active GI bleeding. Pt tolerating oral food and fluids. Education provided for new medications: prednisone and mesalamine. Advised pt to contact provider if GI bleeding occurs again. Pt provided with follow up instructions at the GI clinic and with her PCP; pt will find her own PCP after discharge. All personal possessions sent with pt.
--- NOTE | 2017-01-17 15:03 | NUR ---
Social Work: Discharge D: EMR reviewed. Pt is on day 3 of hospitalization. Pt discussed in multidisciplinary rounds and is medically stable to discharge home today with family via POV. No SW needs identified, no MD orders received. A: Pt who is independent at baseline P: Pt discharged home with spouse via POV. No SW needs identified, no MD orders received. MALIA Miranda
--- NOTE | 2017-01-20 12:03 | PATH ---
SURGICAL PATHOLOGY Attending Physician:Sher Blackwell MD CASE STATUS: Signed Out PATIENT NAME: PRASHANTH CHAMBERLAIN PID: [id number] : 1965 DATE COLLECTED:01/15/2017 00:00 SPECIMEN: 1: Colon, Biopsy 2: Colon, Biopsy 3: Ileum, Biopsy CLINICAL HISTORY: 1). RANDOM COLON BIOPSY 2). 45/SIGMOID BIOPSY 3). TERMINAL ILEUM BIOPSY FINAL DIAGNOSIS: 1. Random Colon, Biopsies: Colonic mucosa with no diagnostic abnormality. Negative for active, chronic and microscopic colitis. Negative for dysplasia and malignancy. 2. Colon, 45 cm, Biopsies: Colonic mucosa with ischemia-type changes, see comment. Negative for granulomas, dysplasia and malignancy. 3. Terminal Ileum, Biopsy: Small bowel mucosa with no diagnostic abnormality. Negative for active inflammation, dysplasia, and malignancy. ICD10: K55.9 NOTE: 2. The differential diagnosis includes ischemia due to trauma/prolapse, true vascular ischemia and ischemia due to infection (i.e., enterohemorrhagic E. coli, C. difficile, etc.). No obvious viral cytopathic effects or parasitic organisms are identified. Additional levels were examined. GROSS DESCRIPTION: The specimens are received in formalin, labeled with the patient's name, and sublabeled as the following: (1) random colon; (2) 45 cm; (3) TI Bx. (1) The specimen consists of multiple fragments of castano glistening semitranslucent tissue (0.8 x 0.3 x 0.1 cm in aggregate). Section code: (1A) tissue. Specimen entirely submitted. (2) The specimen consists of multiple fragments of castano glistening semitranslucent tissue (0.8 x 0.5 x 0.1 cm in aggregate). Section code: (2A) tissue. Specimen entirely submitted. (3) The specimen consists of multiple fragments of castano glistening semitranslucent tissue (0.9 x 0.3 x 0.1 cm in aggregate). Section code: (3A) tissue. Specimen entirely submitted. 01/17/17 ICD-9 CODES: CPT CODES: 1: 06787 2: 77715 3: 07939 Electronically Signed Out Shelly Magdaleno MD Located Within [facility] Pathology [facility] [address], [place] [address] Technical component performed at [facility], [address], [place], [address]
== END 2017-01-17 14:45 | disposition home or self-care (01) | DRG 386 ==
LOC: SED 14:21 → OSC 18:42
PROVIDERS: ADMIT Hospitalist; ATTEND Hospitalist
PROC: 0DBB8ZX Excision of Ileum, Via Natural or Artificial Opening Endoscopic, Diagnostic (ICD-10-PCS; 2017-01-15)
PROC: 0DBN8ZX Excision of Sigmoid Colon, Via Natural or Artificial Opening Endoscopic, Diagnostic (ICD-10-PCS; principal; 2017-01-15 16:00)
DX: K51.511 Left sided colitis with rectal bleeding (principal); D68.51 Activated protein C resistance; F10.99 Alcohol use, unspecified with unspecified alcohol-induced disorder; R25.1 Tremor, unspecified; F32.9 Major depressive disorder, single episode, unspecified; E03.9 Hypothyroidism, unspecified; Z86.718 Personal history of other venous thrombosis and embolism; Z79.01 Long term (current) use of anticoagulants